=== PATIENT | female | born 1995 | race Hispanic/Latino ===

== ENCOUNTER 2023-12-16 21:13 | Emergency (ER) | payer BC, MEDICAID ==
[2023-12-16] MEDS ORDERED: Acetaminophen 500 MG TAB ONE (21:43)
[2023-12-16] MEDS ORDERED: Sulfameth/Trimethoprim DS 800-160mg TAB ONE (22:59)
[2023-12-16 23:28] LABS: Influenza A by NAA Not Detected (NotDetected); Influenza B by NAA Not Detected (NotDetected); SARS-CoV-2 NAA Rapid Test Not Detected (NotDetected)
== END 2023-12-16 23:45 | disposition home or self-care (01) ==
LOC: NAV ERS 21:13
DX: L02.31 Cutaneous abscess of buttock (principal); B34.9 Viral infection, unspecified
CPT/HCPCS: 99284